=== PATIENT | male | born 1965 | race Caucasian/White ===

== ENCOUNTER 2017-04-05 09:37 | Emergency (ER) | payer OTHER ==
[2017-04-05 09:47] VITALS: BMI 34.7
--- NOTE | 2017-04-05 10:04 | PDOC ---
History of Present Illness - General Chief Complaint: Pain, Acute Stated Complaint: LT SIDE PAIN Time Seen by Provider: 04/05/17 10:04 - History of Present Illness Initial Comments: 50 yo male with PMH of kidney stone (s/p lithotripsy 1 year prior) presenting to ER with sharp left upper quadrant pain radiating to the back. The pain was sudden in onset and started in his back then migrated to the front. He believed that this was a renal calculus pain and only sought relief with ibuprofen 800 BID x 2 weeks. Recently the pain has shifted from a front to back direction. The difference between this pain and previous renal calculus episodes is that this pain radiates to the back whereas as previous pains radiated to the front. Admits to some nausea and urinary frequency (in the setting of high water intake ) but no vomiting, cough, hematuria, hesitancy, dysuria, fevers, chills, diarrhea, constipation, or blood from any orifice. PCP: Mark PCP Urologist: Dr. Siddiqi 04/05/17 10:15 Timing/Duration: unsure Past History - Past Medical History Allergies/Adverse Reactions: Allergies Allergy/AdvReac Type Severity Reaction Status Date / Time No Known Allergies Allergy Verified 04/05/17 09:47 Home Medications: Ambulatory Orders Oxycodone HCl/Acetaminophen [Percocet 5-325 mg Tablet] 1 - 2 tab PO Q6H PRN #5 tab MDD 4 04/05/17 Sulfamethoxazole/Trimethoprim [Bactrim Ds -] 1 tab PO BID #10 tablet 04/05/17 Tamsulosin HCl 0.4 mg PO DAILY #7 cap.er.24h 04/05/17 COPD: No Disorders: Yes (kidney stones) Kidney Stones: Yes - Immunization History Immunization Up to Date: Yes - Suicide/Smoking/Psychosocial Hx Smoking Status: Yes Smoking History: Never smoked Have you smoked in the past 12 months: No Number of Cigarettes Smoked Daily: 0 Hx Alcohol Use: No Drug/Substance Use Hx: No Substance Use Type: None Review of Systems - Review of Systems Constitutional: No: Chills, Diaphoresis HEENTM: No: Blurred Vision Respiratory: No: Cough, Shortness of Breath, Stridor, Wheezing Cardiac (ROS): No: Chest Pain, Irregular Heart Rate, Syncope, Chest Tightness ABD/GI: Yes: Nausea. No: Constipated, Diarrhea, Vomiting : Yes: Frequency. No: Burning, Dysuria, Discharge Integumentary: No: Bruising, Change in Color, Lesions, Pruritus, Rash Neurological: No: Headache *Physical Exam - Vital Signs Last Vital Signs Temp Pulse Resp BP Pulse Ox 98.5 F 71 18 146/95 99 04/05/17 09:45 04/05/17 09:45 04/05/17 09:45 04/05/17 09:45 04/05/17 09:45 - Physical Exam General Appearance: Yes: Nourished, Appropriately Dressed. No: Apparent Distress HEENT: positive: EOMI, SHASHANK, Normal ENT Inspection. negative: Normal Voice ( Sounds slightly congested) Neck: positive: Trachea midline, Normal Thyroid, Supple. negative: Tender, Rigid Respiratory/Chest: positive: Lungs Clear, Normal Breath Sounds. negative: Chest Tender, Respiratory Distress Cardiovascular: positive: Regular Rhythm, Regular Rate Gastrointestinal/Abdominal: positive: Normal Bowel Sounds, Flat, Soft. negative : Tender Musculoskeletal: positive: Normal Inspection. negative: CVA Tenderness Extremity: positive: Normal Inspection, Normal Range of Motion. negative: Tender Integumentary: positive: Normal Color, Dry, Warm Neurologic: positive: Fully Oriented, Alert, Normal Mood/Affect, Normal Response , Motor Strength 5/5 ED Treatment Course - LABORATORY CBC & Chemistry Diagram: 04/05/17 10:13 04/05/17 10:13 Medical Decision Making - Medical Decision Making 51 year old with history of kidney stones and recent 2 week course of high dose NSAID use presenting with LUQ pain radiating to the back. The original onset of pain back pain migrating to the front is suspicious for a renal calculus but the two week timeline along with switch of directionality to front to back is concerning for a large stone/ impacted stone and/or peptic ulcer disease/ erosive gastritis in the setting of high dose prolonged NSAID usage. Will use Tylenol 1 G for pain, Maalox, 04/05/17 10:48 UA returned positive for 1 + blood. CT demonstrating 12 mm right uretral stone ( with significant hydroureter) with two 7mm and 6 mm stones in the left renal pelvis. Paged Dr. Siddiqi for management. 04/05/17 12:[address] [place] and he will see the patient tomorrow in his office. The patient's pain was reasonably controlled after tylenol and oxycodone. Sent home with prescription for Bactrim, tamsulosin, and 5 percocets. 04/05/17 12:52 *DC/Admit/Observation/Transfer Diagnosis at time of Disposition: Renal calculus or stone - Discharge Dispostion Disposition: HOME Condition at time of disposition: Improved Admit: No - Prescriptions Prescriptions: Oxycodone HCl/Acetaminophen [Percocet 5-325 mg Tablet] 1 - 2 tab PO Q6H PRN #5 tab MDD 4 PRN Reason: pain Sulfamethoxazole/Trimethoprim [Bactrim Ds -] 1 tab PO BID #10 tablet Tamsulosin HCl 0.4 mg PO DAILY #7 cap.er.24h - Referrals Referrals: Lux Colorado MD [Staff Physician] - - Patient Instructions Printed Discharge Instructions: DI for Kidney Stones Additional Instructions: You have a few kidney stones including one very large one in your left ureter ( the tube running down from your kidney). Please take the antibiotics and Tamsulosin as directed. Please use the percocet for pain as needed every 6 hours. Please return to the ED if the percocet does not help your pain. You must followup with Dr. Colorado tomorrow for treatment of your stones. - Post Discharge Activity
[2017-04-05] MEDS ORDERED: MAG HYDROX/AL HYDROX/SIMETH 30 ML UNIT-DOSE CUP PO ONE (10:25)
[2017-04-05] MEDS ORDERED: MAG HYDROX/AL HYDROX/SIMETH 30 ML UNIT-DOSE CUP ONE (10:44)
--- NOTE | 2017-04-05 10:48 | PDOC ---
Attending Attestation - Resident Resident Name: Humberto Hull - ED Attending Attestation I have performed the following: I have examined & evaluated the patient, The case was reviewed & discussed with the resident, I agree w/resident's findings & plan, Exceptions are as noted - HPI HPI: 04/05/17 10:46 51 M with h/o kidney stones s/p lithotripsy, presenting to ER with L flank pain x 2 weeks. Pt states that he feels a constant pressure in his side, radiating from the back to his epigastrum. Pt endorses nausea without vomiting. Denies F/ C. Denies diarrhea/constipation. Denies dysuria. Pt states that the pain feels similar to his previous stones. He has been taking motrin 800mg BID with some relief of his pain. - Physicial Exam PE: 04/05/17 10:47 "GENERAL: Awake, alert, and fully oriented, in no acute distress HEAD: No signs of trauma EYES: PERRLA, EOMI, sclera anicteric, conjunctiva clear ENT: Auricles normal inspection, hearing grossly normal, nares patent, oropharynx clear without exudates. Moist mucosa NECK: Nontender, no stepoffs, Normal ROM, supple, no lymphadenopathy, JVD, or masses LUNGS: Breath sounds equal, clear to auscultation bilaterally. No wheezes, and no crackles HEART: Regular rate and rhythm, normal S1 and S2, no murmurs, rubs or gallops ABDOMEN: + LUQ TTP, and + L CVAT EXTREMITIES: Normal range of motion, no edema. No clubbing or cyanosis. No cords, erythema, or tenderness NEUROLOGICAL: Cranial nerves II through XII intact. 5/5 strength and sensation in all extremities, Normal speech, normal gait SKIN: Warm, Dry, normal turgor, no rashes or lesions noted. " - Medical Decision Making 04/05/17 10:47 51 M with LUQ pain radiating to L flank x 2 weeks. Possible obstructing stone. Also consider gastritis vs PUD as pt has been on motrin 800mg BID. - Labs, UA - CTAP - Pain control 04/05/17 12:40 CT shows large obstructing L sided kidney stone with hydroureter. Dr. [place] made aware, states that if pt can tolerate PO and pain is controlled, he will see him in clinic tomorrow. Pt reassessed - he states the pain is tolerable. Pt is well appearing, vitals normal, tolerating PO. Clinically stable for DC. I discussed the physical exam findings, ancillary test results and final diagnoses with the patient. I answered all of the patient's questions. The patient was satisfied with the care received and felt comfortable with the discharge plan and treatment plan. The patient agrees to follow up with the primary care physician within 24-72 hours.
[2017-04-05 10:51] LABS: BASO % 1.4 % (0-2.0); EOS % 5.3 % (0-4.5); HEMATOCRIT 43.5 % (35.4-49); HEMOGLOBIN 14.1 GM/dL (11.7-16.9); LYMPH % 19.7 % (8-40); MCH 29.2 pg (25.7-33.7); MCHC 32.4 g/dl (32.0-35.9); MEAN CELL VOLUME 90.1 fl (80-96); MEAN PLT VOLUME 9.5 fl (7.5-11.1); MONO % 6.8 % (3.8-10.2); NEUT % 66.8 % (42.8-82.8); PLATELET COUNT 202 K/MM3 (134-434); RBC 4.82 M/mm3 (4.00-5.60); RDW 13.6 % (11.9-15.9); URINE APPEARANCE CLEAR; URINE BILIRUBIN NEGATIVE (NEGATIVE); URINE BLOOD 1+ (NEGATIVE); URINE COLOR STRAW; URINE GLUCOSE (UA) NEGATIVE (NEGATIVE); URINE KETONE NEGATIVE (NEGATIVE); URINE LEUK ESTERASE TRACE (NEGATIVE); URINE NITRITE NEGATIVE (NEGATIVE); URINE PROTEIN NEGATIVE (NEGATIVE); URINE UROBILINOGEN NEGATIVE mg/dL (0.2-1.0); WHITE BLOOD COUNT 11.1 K/mm3 (4.0-10.0)
[2017-04-05] MEDS ORDERED: RANITIDINE HCL 150 MG/10 ML UNIT-DOSE PO ONE (11:02)
[2017-04-05] MEDS ORDERED: ACETAMINOPHEN 1000 MG/100 ML VIAL (NON FORMULARY) IVPB ONE (11:02)
[2017-04-05 11:03] LABS: INR 0.98 (0.82-1.09); PROTHROMBIN TIME (PATIENT) 11.1 SEC (9.98-11.88)
[2017-04-05] MEDS ORDERED: ACETAMINOPHEN INJECTION 100 ML IVPB ONE (11:03)
[2017-04-05] MEDS ORDERED: RANITIDINE HCL 150 MG TABLET (FP) PO ONE (11:06)
[2017-04-05] MEDS ORDERED: RANITIDINE HCL 150 MG TABLET (FP) ONE (11:06)
[2017-04-05 11:11] LABS: ALBUMIN 3.7 g/dl (3.4-5.0); ALK PHOS 83 U/L (45-117); ANION GAP 6 (8-16); BILIRUBIN,TOTAL 0.3 mg/dL (0.2-1.0); BLOOD UREA NITROGEN 17 mg/dL (7-18); CALCIUM 8.4 mg/dL (8.5-10.1); CHLORIDE 105 mmol/L (98-107); CO2 29 mmol/L (21-32); CREATININE 1.3 mg/dL (0.7-1.3); GLUCOSE,RANDOM 95 mg/dL (74-106); LIPASE 73 U/L (73-393); POTASSIUM 4.9 mmol/L (3.5-5.1); SGOT/AST 19 U/L (15-37); SGPT/ALT 27 U/L (12-78); SODIUM 140 mmol/L (136-145); TOT PROT 7.8 g/dl (6.4-8.2)
[2017-04-05 11:29] LABS: EPI CELLS RARE /HPF (FEW)
[2017-04-05] MEDS ORDERED: oxyCODONE HCL 5 MG TABLET PO ONE (12:31)
[2017-04-05] MEDS ORDERED: oxyCODONE HCL 5 MG TABLET ONE (12:40)
[2017-04-05 13:54] VITALS: BP 147/89; PULSE 78; TEMP 98.2
== END 2017-04-05 14:06 | disposition home or self-care (01) ==
LOC: JER 09:37
PROC: 3E033NZ Introduction of Analgesics, Hypnotics, Sedatives into Peripheral Vein, Percutaneous Approach (ICD-10-PCS; principal; 2017-04-05)
DX: N13.2 Hydronephrosis with renal and ureteral calculous obstruction (principal); Z87.442 Personal history of urinary calculi
CPT/HCPCS: 36415; 74176-TC; 80053; 81003; 81015; 83690; 85025; 85610; 87086; 99284-25

== ENCOUNTER 2017-06-21 01:03 | Observation (INO) | payer OTHER ==
[2017-06-21] MEDS ORDERED: SODIUM CHLORIDE 0.9% 1000 ML INFUS.BAG IV ONE (01:36)
[2017-06-21] MEDS ORDERED: KETOROLAC TROMETHAMINE 30 MG/1 ML VIAL IVPUSH ONE ×2 (01:36→02:22)
[2017-06-21] MEDS ORDERED: KETOROLAC TROMETHAMINE 60 MG/2 ML VIAL IM ONE (01:53)
[2017-06-21 01:56] LABS: BASO % 0.8 % (0-2.0); EOS % 3.1 % (0-4.5); HEMATOCRIT 41.2 % (35.4-49); LYMPH % 17.9 % (8-40); MCH 30.7 pg (25.7-33.7); MCHC 34.1 g/dl (32.0-35.9); NEUT % 72.2 % (42.8-82.8); PLATELET COUNT 226 K/MM3 (134-434); RBC 4.57 M/mm3 (4.00-5.60); RDW 13.9 % (11.9-15.9); WHITE BLOOD COUNT 12.6 K/mm3 (4.0-10.0)
[2017-06-21 01:57] LABS: URINE APPEARANCE CLEAR; URINE BILIRUBIN NEGATIVE (<2.0 mg/dL); URINE COLOR LTYELLOW; URINE GLUCOSE (UA) NEGATIVE (NEGATIVE); URINE KETONE NEGATIVE (NEGATIVE); URINE LEUK ESTERASE TRACE (NEGATIVE); URINE NITRITE NEGATIVE (NEGATIVE); URINE PROTEIN NEGATIVE (NEGATIVE); URINE UROBILINOGEN NEGATIVE mg/dL (0.2-1.0)
[2017-06-21] MEDS ORDERED: KETOROLAC TROMETHAMINE 30 MG/1 ML VIAL ONE (02:02)
[2017-06-21 02:12] LABS: EPI CELLS RARE /HPF (FEW); URINE MUCUS RARE
--- NOTE | 2017-06-21 02:21 | PDOC ---
Attending Attestation - Resident Resident Name: Dax Aponte - ED Attending Attestation I have performed the following: I have examined & evaluated the patient, The case was reviewed & discussed with the resident, I agree w/resident's findings & plan - HPI HPI: 06/21/17 06:22 Pt comes with right flank and abd pain. He has had this in the past; however he states that there is something different about the pain. Pain woke him from sleep tonight, and he lives two blocks away so he came in. Labs show blood in the urine and slight elevation of WMC count. Spiral CT scan pending. - Physicial Exam PE: 06/21/17 06:24 Agree with resident exam. Pt is afebrile. He feels better with treatment in the ER. He is not writhing in pain at this time. - Medical Decision Making 06/21/17 06:25 CT scan pending. Pt will go home with flomax and urology follow up if CT shows no obstructing kidney stone.. 06/21/17 06:[address] scan ourselves. Pt has a 6.8mm kidney stone in the distal right ureter with hydroureteronephrosis and stranding around the right kidney 06/21/17 06:37 Referring Physician: DAVID SHIELDS Patient Name: COURT BECERRIL THIS IS A PRELIMINARY REPORT FROM IMAGING RN BURN DATE OF SERVICE: 2017-06-21 06:10:49 IMAGES: [id number] EXAM: CT abdomen and pelvis without contrast HISTORY: Concern for stone COMPARISON: None. FINDINGS: Abdomen Liver: Normal Spleen: Normal Pancreas: Normal Gallbladder: Normal Stomach: Normal Small bowel: Normal Large bowel: Normal Appendix: Normal Adrenals:Normal Kidneys: There is a 4 mm stone in the distal right ureter with moderate hydronephrosis and ureteral distention. There are 2 stones in the distal left ureter the largest measuring 1.2 x 1.0 cm. However, there is no left-sided hydronephrosis or ureteral distention Vascular: Normal Lymphatic: Normal Peritoneal: No free peritoneal air or fluid Pelvis: Prostate: normal Rectum: Normal Bladder: Normal The inferior thorax: Normal General: Skeletal: Normal Abdominal wall: Normal IMPRESSION: Right sided obstructive uropathy. Distal left ureteral stone without evidence of obstruction THIS DOCUMENT HAS BEEN ELECTRONICALLY SIGNED Pt will be admitted to the Med surg service
[2017-06-21] MEDS ORDERED: TAMSULOSIN HCL 0.4 MG CAP.ER.24H (FP) PO ONE (02:23)
--- NOTE | 2017-06-21 02:28 | PDOC ---
History of Present Illness - General Chief Complaint: Pain Stated Complaint: R/O KIDNEY STONES Time Seen by Provider: 06/21/17 01:22 History Source: Patient Exam Limitations: No Limitations - History of Present Illness Initial Comments: 06/21/17 02:27 The patient is a 51M with a PMH of nephrolithiasis who presents to the ER with complaints of R back pain. The patient states that overnight tonight, he felt a sudden onset R flank pain which radiates to his anterior RLQ and down to his groin. He says it feels slightly like his previous renal stones. He states that he had a lithotripsy procedure on the L and passed what he thinks was a clot 2 days ago as he was urinating. He states that he has chills but denies any fevers , CP, SOB, nausea, but states he vomited twice. He was at his friends house having a few beers tonight then states he felt the pain and went home and vomited. Past History - Past Medical History Allergies/Adverse Reactions: Allergies Allergy/AdvReac Type Severity Reaction Status Date / Time No Known Allergies Allergy Verified 06/21/17 02:10 Home Medications: Ambulatory Orders Ibuprofen/Famotidine [Duexis 800-26.6 mg Tablet] 1 each PO DAILY 06/21/17 COPD: No Disorders: Yes (kidney stones) Kidney Stones: Yes - Immunization History Immunization Up to Date: Yes - Suicide/Smoking/Psychosocial Hx Smoking Status: Yes Smoking History: Never smoked Have you smoked in the past 12 months: No Number of Cigarettes Smoked Daily: 0 Information on smoking cessation initiated: No Hx Alcohol Use: No Drug/Substance Use Hx: No Substance Use Type: None Review of Systems - Review of Systems Able to Perform ROS?: Yes Comments:: 06/21/17 03:33 GENERAL/CONSTITUTIONAL: Positive for fever. No chills. No weakness. HEAD, EYES, EARS, NOSE AND THROAT: No change in vision. No ear pain or discharge. No sore throat. CARDIOVASCULAR: No chest pain, palpitations, or lightheadedness. RESPIRATORY: No cough, wheezing, shortness of breath, or hemoptysis. GASTROINTESTINAL: Positive for vomiting and abdominal pain. No nausea, diarrhea , or constipation. GENITOURINARY: Positive for R flank pain. No dysuria, frequency, hematuria, or change in urination. MUSCULOSKELETAL: No joint or muscle swelling or pain. No neck or back pain. SKIN: No rash or lesions. NEUROLOGIC: No headache, numbness, tingling, weakness, loss of consciousness, or change in strength/sensation. ENDOCRINE: No increased thirst. No abnormal weight change. HEMATOLOGIC/LYMPHATIC: No anemia, easy bleeding, or history of blood clots. ALLERGIC/IMMUNOLOGIC: No hives or skin allergy. Is the patient limited [place] proficient: No *Physical Exam - Vital Signs Last Vital Signs Temp Pulse Resp BP Pulse Ox 98.0 F 62 18 172/93 10 L 06/21/17 01:13 06/21/17 01:13 06/21/17 01:13 06/21/17 01:13 06/21/17 01:13 - Physical Exam Comments: 06/21/17 03:34 GENERAL: Well developed, well nourished. Awake and alert. No acute distress. HEENT: Normocephalic, atraumatic. Hearing grossly normal. Moist mucous membranes. PERRLA, EOMI. No conjunctival pallor. Sclera are non-icteric. NECK: Supple. Full ROM. No JVD. CARDIOVASCULAR: Regular rate and rhythm. No murmurs, rubs, or gallops. PULMONARY: No evidence of respiratory distress. Lungs clear to auscultation bilaterally. No wheezing, rales or rhonchi. ABDOMINAL: Soft. Tender to deep palpation in RLQ. Non-distended. No rebound or guarding. GENITOURINARY: R CVA tenderness. MUSCULOSKELETAL: Normal range of motion at all joints. No bony deformities or tenderness. EXTREMITIES: No cyanosis. No clubbing. No edema. No calf tenderness. SKIN: Warm and dry. Normal capillary refill. No rashes. No jaundice. NEUROLOGICAL: Alert, awake, appropriate. Cranial nerves 2-12 intact. Normal speech. Gait is normal without ataxia. PSYCHIATRIC: Cooperative. Good eye contact. Appropriate mood and affect. ED Treatment Course - LABORATORY CBC & Chemistry Diagram: 06/21/17 01:49 06/21/17 04:55 - ADDITIONAL ORDERS Additional order review: Laboratory Results 06/21/17 01:49 Urine Color Ltyellow Urine Appearance Clear Urine pH 5.0 Ur Specific Brady 1.023 Urine Protein Negative Urine Glucose (UA) Negative Urine Ketones Negative Urine Blood 2+ H Urine Nitrite Negative Urine Bilirubin Negative Urine Urobilinogen Negative Ur Leukocyte Esterase Trace Urine WBC (Auto) 3 Urine RBC (Auto) 42 Ur Epithelial Cells Rare Urine Mucus Rare 06/21/17 01:49 RBC 4.57 MCV 90.0 MCHC 34.1 RDW 13.9 MPV 10.0 Neutrophils % 72.2 Lymphocytes % 17.9 Monocytes % 6.0 Eosinophils % 3.1 Basophils % 0.8 - Medications Given in the ED: ED Medications Discontinued Medications Generic Name Dose Route Start Last Admin Trade Name Shashi PRN Reason Stop Dose Admin Ketorolac Tromethamine 30 mg 06/21/17 01:36 06/21/17 02:13 Toradol Injection - IVPUSH 06/21/17 01:37 30 mg ONCE ONE Administration Ketorolac Tromethamine 60 mg 06/21/17 01:53 06/21/17 02:12 Toradol Injection - IM 06/21/17 01:54 Not Given ONCE ONE Ketorolac Tromethamine 30 mg 06/21/17 02:22 06/21/17 02:26 Toradol Injection - IVPUSH 06/21/17 02:23 30 mg ONCE ONE Administration Sodium Chloride 1,000 ml 06/21/17 01:36 06/21/17 02:12 Normal Saline - IV 06/21/17 01:37 1,000 ml ONCE ONE Administration Tamsulosin HCl 0.4 mg 06/21/17 02:23 06/21/17 02:27 Flomax - PO 06/21/17 02:24 0.4 mg ONCE ONE Administration Medical Decision Making - Medical Decision Making 06/21/17 03:35 The patient is a 51M with a PMH of nephrolithiasis who presents to the ER with complaints of R flank and RLQ pain. High on my differential is repeat nephrolithiasis vs appendicitis. Will order CBC, CMP to monitor for infection and renal function and UA. Pending labs. 06/21/17 06:30 Labs WNL. Preliminary read of CT indicates R hydronephrosis with 1 renal pelvis stone > 5.5 mm and another L UVJ stone. Will page hospitalist for admission. 06/21/17 06:55 Pt signed out to Dr. Wiggins for admission. *DC/Admit/Observation/Transfer Diagnosis at time of Disposition: Nephrolithiasis - Referrals - Patient Instructions - Post Discharge Activity
[2017-06-21] MEDS ORDERED: morphine CARPU-JECT 4 MG/1 ML DISP.SYRIN IVPUSH ONE (04:53)
[2017-06-21] MEDS ORDERED: morphine SULFATE 4 MG/ML VIAL ONE ×2 (05:22→12:04)
[2017-06-21 05:29] LABS: ALBUMIN 3.6 g/dl (3.4-5.0); ANION GAP 3 (8-16); BILIRUBIN,TOTAL 0.2 mg/dL (0.2-1.0); BLOOD UREA NITROGEN 21 mg/dL (7-18); CALCIUM 8.3 mg/dL (8.5-10.1); CHLORIDE 106 mmol/L (98-107); CO2 29 mmol/L (21-32); CREATININE 1.3 mg/dL (0.7-1.3); GLUCOSE,RANDOM 132 mg/dL (74-106); POTASSIUM 5.1 mmol/L (3.5-5.1); SGOT/AST 18 U/L (15-37); SGPT/ALT 22 U/L (12-78); SODIUM 138 mmol/L (136-145); TOT PROT 7.5 g/dl (6.4-8.2)
[2017-06-21 05:30] LABS: ALK PHOS 83 U/L (45-117)
[2017-06-21] MEDS ORDERED: TAMSULOSIN HCL 0.4 MG CAP.ER.24H (FP) ONE (06:30)
--- NOTE | 2017-06-21 06:46 | PDOC ---
Attending Attestation - ED Attending Attestation I have performed the following: I have examined & evaluated the patient, The case was reviewed & discussed with the resident, I agree w/resident's findings & plan
[2017-06-21] MEDS ORDERED: HYDROmorphone HCL CARPU-JECT 1 MG/1 ML DISP.SYRIN IVPUSH PRN (10:52)
[2017-06-21] MEDS ORDERED: D5-1/2NS+20 MEQ KCL - 20 MEQ/1,000 ML INFUS.BAG IV SCH (11:00)
[2017-06-21] MEDS ORDERED: morphine SULFATE 4 MG/ML VIAL IVPUSH PRN (11:45)
--- NOTE | 2017-06-21 11:46 | HP ---
Admitting History and Physical - Admission History of Present Illness: 51M with a PMH of nephrolithiasis who presents to the ER with complaints of R back pain. The patient states that overnight tonight, he felt a sudden onset R flank pain which radiates to his anterior RLQ and down to his groin. He says it feels slightly like his previous renal stones. He states that he had a lithotripsy procedure on the L and passed what he thinks was a clot 2 days ago as he was urinating. He states that he has chills but denies any fevers, CP, SOB , nausea, but states he vomited twice. He was at his friends house having a few beers tonight then states he felt the pain and went home and vomited. - Past Medical History Cardiovascular: Yes: Hyperlipdemia (diet controlled). No: AFIB, CAD, CHF, HTN Renal/: Yes: Renal Calculi (8 years ago) - Past Surgical History Past Surgical History: Yes: None - Smoking History Smoking history: Never smoked Have you smoked in the past 12 months: No Aproximately how many cigarettes per day: 0 - Alcohol/Substance Use Hx Alcohol Use: No - Social History History of Recent Travel: No Home Medications - Allergies Allergies/Adverse Reactions: Allergies Allergy/AdvReac Type Severity Reaction Status Date / Time No Known Allergies Allergy Verified 06/21/17 02:10 - Home Medications Home Medications: Ambulatory Orders Ibuprofen/Famotidine [Duexis 800-26.6 mg Tablet] 1 each PO DAILY 06/21/17 Family Disease History - Family Disease History Family Disease History: Diabetes: Mother, Other: Father (HTN) Physical Examination Vital Signs: Vital Signs Temperature 98.0 F 06/21/17 01:13 Pulse Rate 89 06/21/17 07:49 Respiratory Rate 18 06/21/17 07:49 Blood Pressure 126/73 06/21/17 07:49 O2 Sat by Pulse Oximetry (%) 98 06/21/17 07:49 Cardiovascular: Yes: Regular Rate and Rhythm Respiratory: Yes: Regular, CTA Bilaterally Gastrointestinal: Yes: Normal Bowel Sounds, Soft. No: Tenderness Edema: No Labs: CBC, BMP 06/21/17 01:49 06/21/17 04:55 Problem List - Problems (1) Calculi, ureter Assessment/Plan: -NPO -IVF -PAIN CONTROL -UROLOGY Code(s): N20.1 - CALCULUS OF URETER (2) Hydronephrosis with urinary obstruction due to renal calculus Assessment/Plan: - ABOVE Code(s): N13.2 - HYDRONEPHROSIS WITH RENAL AND URETERAL CALCULOUS OBSTRUCTION
[2017-06-21 11:50] VITALS: BMI 35.3
[2017-06-21] MEDS ORDERED: CEFTRIAXONE 1 GM in DEXTROSE 5%-WATER - 50 ML IVPB ONE (15:05)
[2017-06-21] MEDS ORDERED: CEFTRIAXONE 1 GM/50 ML BAG ONE (15:16)
--- NOTE | 2017-06-21 15:47 | CON.GU ---
Consult - History of Present Illness History of Present Illness: 51 yo male with h/o recurrent nephrolithiaisis s/p ESWL of large left ureteral stone 2 mos ago, now admitted with rt flank pain, N/V. CT shows obstructing 8mm RDU stone, aslo of note is a 9mm RK stone and nonobstructing 11mm and 5mm LDU stones - History Source History Provided By: Patient Limitations to Obtaining History: No Limitations - Past Medical History Cardio/Vascular: Yes: Hyperlipdemia (diet controlled). No: AFIB, CAD, CHF, HTN Renal/: Yes: Renal Calculi (8 years ago) - Past Surgical History Past Surgical History: Yes: None - Alcohol/Substance Use Hx Alcohol Use: No - Smoking History Smoking history: Never smoked Have you smoked in the past 12 months: No Aproximately how many cigarettes per day: 0 - Social History History of Recent Travel: No Home Medications - Allergies Allergies/Adverse Reactions: Allergies Allergy/AdvReac Type Severity Reaction Status Date / Time No Known Allergies Allergy Verified 06/21/17 02:10 - Home Medications Home Medications: Ambulatory Orders Ibuprofen/Famotidine [Duexis 800-26.6 mg Tablet] 1 each PO DAILY 06/21/17 Family Disease History - Family Disease History Family Disease History: Diabetes: Mother, Other: Father (HTN) Review of Systems - Review of Systems Genitourinary: reports: Flank Pain Physical Exam- Vital Signs: Vital Signs Temperature 97.7 F 06/21/17 15:42 Pulse Rate 74 06/21/17 15:42 Respiratory Rate 20 06/21/17 15:42 Blood Pressure 147/89 06/21/17 15:42 O2 Sat by Pulse Oximetry (%) 98 06/21/17 14:47 Constitutional: Yes: Well Nourished Eyes: Yes: WNL HENT: Yes: WNL Neck: Yes: WNL Cardiovascular: Yes: WNL Respiratory: Yes: WNL Gastrointestinal: Yes: WNL Renal/: Yes: CVA Tenderness - Right Kidneys: Yes: FLank Pain Right Pelvis: Yes: Bladder Non Palpable Testicles: Yes: Descended Scrotum: Yes: WNL Penis: Yes: WNL Prostate Exam: Yes: WNL Musculoskeletal: Yes: WNL Psychiatric: Yes: Alert, Oriented Labs: CBC, BMP 06/21/17 01:49 06/21/17 04:55 Imaging - Results Cat Scan: Image Reviewed Problem List - Problems (1) Calculi, ureter Assessment/Plan: in light of persistant pain, elevated WBC and size of stone, will plan for rt ureteroscopy/laser litho stent placement and also stent placement on left Code(s): N20.1 - CALCULUS OF URETER
[2017-06-21] MEDS ORDERED: MIDAZOLAM HCL 2 MG/2 ML SINGLE DOSE VIAL ONE ×2 (17:09→17:23)
--- NOTE | 2017-06-21 18:13 | OP ---
Operative Note - Note: Operative Date: 06/21/17 Pre-Operative Diagnosis: obstructing RDU stone, left DU stones Operation: cysto/bilateral retrograde/right ureteroscopy/laser litho/stent placement/left ureteral stent placement Findings: as above Post-Operative Diagnosis: Same as Pre-op Surgeon: Lux Colorado Anesthesiologist/ISSUER: Zach Tong Anesthesia: General Specimens Removed: stone frags Estimated Blood Loss (mls): 1 Drains & Tubes with Location: 7fr 28cm stent x 2 Operative Report Dictated: Yes
[2017-06-21] MEDS ORDERED: DEXTROSE 5%-0.45% SALINE 1,000 ML IV SCH (18:15)
[2017-06-21] MEDS ORDERED: ONDANSETRON 4 MG/2 ML VIAL IVPUSH PRN (18:22)
[2017-06-21] MEDS ORDERED: LACTATED RINGERS SOLUTION 1,000 ML IV SCH (18:30)
--- NOTE | 2017-06-21 20:08 | OP ---
DATE OF OPERATION: 06/21/2017 PREOPERATIVE DIAGNOSIS: Obstructing right distal ureteral stone and nonobstructing left distal ureteral stone. POSTOPERATIVE DIAGNOSIS: Obstructing right distal ureteral stone and nonobstructing left distal ureteral stone. PROCEDURE: Cystoscopy, bilateral retrograde pyelogram, right ureteroscopy, laser lithotripsy, stent placement and left ureteral stent placement. SURGEON: Pamela Andrade MD ANESTHETIC: Spinal. INDICATION: The patient is a 51-year-old male with a history of recurrent nephrolithiasis status post ESWL of large left ureteral stone approximately 2 months ago who now presents with acute onset of right flank pain and noted to have an obstructing 8-mm stone in the right distal ureter with elevated white count. He was taken to the OR immediately for cystoscopy, ureteroscopy and laser lithotripsy of the ureteral stones and stent placement of left ureteral stone, because he also had a large nonobstructing stone in the left distal ureter, and the stone will need to be treated at another time. DESCRIPTION OF PROCEDURE: After informed consent was obtained the patient was taken to the OR, placed supine on the table. Cardiac monitoring administered. Spinal anesthesia established. He was prepped and draped in dorsal lithotomy position. He had been given 1 g of ceftriaxone. At this point the rigid cystocope was introduced into the urethra without difficulty. Anterior urethra was normal. Prostatic urethra was 3 cm and occlusive. The bladder was visualized. No tumors or stones noted in the bladder. Attention was turned to the right ureteral orifice. This was intubated with the ureteral catheter. There was contrast injected for a retrograde pyelogram. Hydronephrosis down to the distal ureter was noted, where a radiolucent stone was present. A guidewire was advanced beyond the stone and the double lumen 7 degree ureteroscope was entered the distal ureter where the stone was seen. Using 365 micron fiber, the stone was pulverized into fine dust and 1-2 mm fragments and several of these fragments were removed and sent to pathology for analysis. The rigid ureteroscope was removed and the flexible ureteroscope was advanced and the entire area was inspected. No other stones were noted. The ureteroscope was then removed and a 7-Nigerien 28-cm double pigtail stent was then advanced in the monorail fashion over the right ureter, and fluoroscopy confirmed the stent to be in good position. With the right side now completed, attention was turned to the left side. catheter. Contrast was injected for a retrograde pyelogram. There was no hydronephrosis but a filling defect in the distal ureter. The guidewire was advanced and then over the guidewire a 7-Nigerien 28-cm double pigtail stent was then advanced in monorail fashion the guidewire removed. The left ureteral stones will be treated at a later date, since patient had evidence of a white count and did not want to prolong the procedure any more than it needed to be. The cystocope was then removed and fluoroscopy confirmed again the left stent to be in good position as well as right stent. A Green catheter was placed to straight drainage. The patient was awoken from anesthesia and transferred to recovery in stable condition. There were no complications. Estimated blood loss was minimal. PAMELA ANDRADE M.D. [id number]
[2017-06-21] MEDS ORDERED: HEPARIN NA (PORCINE) 5,000 UNITS/ML 1ML VIAL SQ SCH (22:00)
[2017-06-22] MEDS: oxyCODONE HCL 5 MG TABLET PO PRN ×3 (01:34→13:44)
[2017-06-22 07:52] LABS: BASO % 0.3 % (0-2.0); EOS % 5.3 % (0-4.5); HEMATOCRIT 38.1 % (35.4-49); LYMPH % 24.1 % (8-40); MCH 30.8 pg (25.7-33.7); MEAN CELL VOLUME 90.4 fl (80-96); MEAN PLT VOLUME 9.4 fl (7.5-11.1); MONO % 7.7 % (3.8-10.2); NEUT % 62.6 % (42.8-82.8); PLATELET COUNT 194 K/MM3 (134-434); RBC 4.21 M/mm3 (4.00-5.60); RDW 14.1 % (11.9-15.9); WHITE BLOOD COUNT 8.7 K/mm3 (4.0-10.0)
[2017-06-22 08:14] LABS: ALBUMIN 3.1 g/dl (3.4-5.0); ANION GAP 6 (8-16); BLOOD UREA NITROGEN 17 mg/dL (7-18); CHLORIDE 104 mmol/L (98-107); CO2 30 mmol/L (21-32); CREATININE 1.1 mg/dL (0.7-1.3); GLUCOSE,RANDOM 105 mg/dL (74-106); POTASSIUM 4.4 mmol/L (3.5-5.1); SGOT/AST 17 U/L (15-37); SGPT/ALT 16 U/L (12-78); SODIUM 140 mmol/L (136-145)
[2017-06-22 08:15] LABS: ALK PHOS 78 U/L (45-117); BILIRUBIN,TOTAL 0.2 mg/dL (0.2-1.0); TOT PROT 6.7 g/dl (6.4-8.2)
--- NOTE | 2017-06-22 09:14 | PN ---
Progress Note, Physician Chief Complaint: s/p cystoscopy with stents post op day one History of Present Illness: under spinal anesthesia - Current Medication List Current Medications: Active Medications Dextrose/Sodium Chloride (D5-1/2ns -) 1,000 mls @ 75 mls/hr IV [facility] Last Admin: 06/21/17 19:10 Dose: 0 mls Lactated Ringer's (Lactated Ringers Solution) 1,000 mls @ 75 mls/hr IV [facility] Last Admin: 06/22/17 01:25 Dose: Not Given Ondansetron HCl (Zofran Injection) 4 mg IVPUSH Q6H PRN PRN Reason: NAUSEA AND/OR VOMITING Oxycodone HCl (Roxicodone -) 5 mg PO Q4H PRN PRN Reason: PAIN LEVEL 1-5 Last Admin: 06/22/17 07:37 Dose: 5 mg - Objective Vital Signs: Vital Signs Temperature 98.0 F 06/22/17 05:46 Pulse Rate 71 06/22/17 05:46 Respiratory Rate 20 06/22/17 05:46 Blood Pressure 140/85 06/22/17 05:46 O2 Sat by Pulse Oximetry (%) 100 06/21/17 22:00 Constitutional: Yes: Well Nourished Cardiovascular: Yes: WNL Respiratory: Yes: WNL Gastrointestinal: Yes: WNL Labs: CBC, BMP 06/22/17 06:52 06/22/17 06:52 Assessment/Plan No complaints about anesthetic, no adverse effects, mild flank pain. Dept of anesthesiology will sign off the case at this time
--- NOTE | 2017-06-22 12:16 | EKG ---
Test Reason : Blood Pressure : / mmHG Vent. Rate : 085 BPM Atrial Rate : 085 BPM P-R Int : 162 ms QRS Dur : 106 ms QT Int : 386 ms P-R-T Axes : 028 -28 016 degrees QTc Int : 459 ms NORMAL SINUS RHYTHM VOLTAGE CRITERIA FOR LEFT VENTRICULAR HYPERTROPHY ABNORMAL ECG WHEN COMPARED WITH ECG OF 05-JUN-2015 08:58, NO SIGNIFICANT CHANGE WAS FOUND Confirmed by ALYSON ZEE MD ([id number]) on 06/22/2017 12:15:56 PM Referred By: Confirmed By:ALYSON ZEE MD
--- NOTE | 2017-06-22 12:40 | PN ---
Progress Note, Physician Chief Complaint: Right flank pain Obstruction nephrolithiasis Hydronephrosis History of Present Illness: NAD, in bed, family at bedside complaining of burning during urination and pelvic pressure self ambulatory blood in [id number], is expected post stent placement - Current Medication List Current Medications: Active Medications Dextrose/Sodium Chloride (D5-1/2ns -) 1,000 mls @ 75 mls/hr [facility] Last Admin: 06/21/17 19:10 Dose: 0 mls Lactated Ringer's (Lactated Ringers Solution) 1,000 mls @ 75 mls/hr IV [facility] Last Admin: 06/22/17 01:25 Dose: Not Given Ondansetron HCl (Zofran Injection) 4 mg IVPUSH Q6H PRN PRN Reason: NAUSEA AND/OR VOMITING Oxycodone HCl (Roxicodone -) 5 mg PO Q4H PRN PRN Reason: PAIN LEVEL 1-5 Last Admin: 06/22/17 07:37 Dose: 5 mg - Objective Vital Signs: Vital Signs Temperature 98.3 F 06/22/17 10:00 Pulse Rate 94 H 06/22/17 10:00 Respiratory Rate 16 06/22/17 10:00 Blood Pressure 135/77 06/22/17 10:00 O2 Sat by Pulse Oximetry (%) 98 06/22/17 08:00 Constitutional: Yes: Well Nourished, No Distress, Calm Cardiovascular: Yes: Regular Rate and Rhythm Respiratory: Yes: Regular Gastrointestinal: Yes: Normal Bowel Sounds, Soft, Tenderness (pelvic) Genitourinary: Yes: WNL Musculoskeletal: Yes: WNL Extremities: Yes: WNL Edema: No Peripheral Pulses WNL: Yes Neurological: Yes: Alert, Oriented Psychiatric: Yes: Alert, Oriented Labs: CBC, BMP 06/22/17 06:52 06/22/17 06:52 Problem List - Problems (1) Nephrolithiasis Assessment/Plan: -BL ureter stent placementt POD #1 Code(s): N20.0 - CALCULUS OF KIDNEY (2) Hydronephrosis with urinary obstruction due to renal calculus Code(s): N13.2 - HYDRONEPHROSIS WITH RENAL AND URETERAL CALCULOUS OBSTRUCTION Assessment/Plan see problem list
[2017-06-22 13:25] VITALS: BP 137/80; PULSE 86; TEMP 97.9
[2017-06-22] MEDS ORDERED: PHENAZOPYRIDINE HCL 100 MG TABLET (FP) PO PRN (14:05)
--- NOTE | 2017-06-23 09:47 | PATH ---
Surgical Pathology Report Patient Name: COURT BECERRIL Med. Rec. #: [id number] /Age/Gender: 1965 (Age: 51) / M Account: [id number] Location: [facility] MED/SURG Taken: 06/21/2017 Received: 06/22/2017 Reported: 06/23/2017 Physicians: Lux [place] M.D. Specimen(s) Received RIGHT URETERAL STONES Clinical History Bilateral ureteral stones Final Diagnosis URETERAL STONES, RIGHT, REMOVAL: URETEROLITHIASIS. MACROSCOPIC DIAGNOSIS. Electronically Signed Carmen Morris M.D. Gross Description Received fresh labeled "right ureteral stones," is a 0.5 x 0.3 x 0.2 cm aggregate of bonilla, irregular to fragmented calculi. The specimen is sent for chemical analysis. /06/22/2017 saudi/06/22/2017
[2017-07-02 14:15] LABS: URIC ACID 93 % (.); WEIGHT 11.8 mg (.)
== END 2017-06-22 15:59 | disposition home or self-care (01) ==
LOC: JER 01:03 → JERBED 09:31 → J7W 15:36
PROVIDERS: ADMIT Family Medicine; ATTEND Family Medicine
PROC: 0TF68ZZ Fragmentation in Right Ureter, Via Natural or Artificial Opening Endoscopic (ICD-10-PCS; 2017-06-21)
PROC: 0T788DZ Dilation of Bilateral Ureters with Intraluminal Device, Via Natural or Artificial Opening Endoscopic (ICD-10-PCS; 2017-06-21)
PROC: 0TF78ZZ Fragmentation in Left Ureter, Via Natural or Artificial Opening Endoscopic (ICD-10-PCS; principal; 2017-06-21 16:30)
DX: N20.1 Calculus of ureter (principal); Z87.442 Personal history of urinary calculi
CPT/HCPCS: 36415; 74176; 76000-TC-FY; 80053; 81003; 81015; 82360; 85025; 87086; 88300-TC; 93005; 93010; 94760; 99285-25; G0378; J7030

== ENCOUNTER 2021-07-15 09:16 | Day surgery (SDC) | payer BC ==
[2021-07-12 11:01] VITALS: BMI 38.9
[2021-07-15 10:26] VITALS: TEMP 97.7
[2021-07-15 10:34] VITALS: BP 130/84
[2021-07-15 10:35] VITALS: PULSE 78
== END 2021-07-15 10:50 | disposition home or self-care (01) ==
LOC: FASU-ENDO 09:16
PROVIDERS: ATTEND Internal Medicine Gastroenterology
PROC: 3E0H8KZ Introduction of Other Diagnostic Substance into Lower GI, Via Natural or Artificial Opening Endoscopic (ICD-10-PCS; 2021-07-15)
PROC: 0DBN8ZX Excision of Sigmoid Colon, Via Natural or Artificial Opening Endoscopic, Diagnostic (ICD-10-PCS; principal; 2021-07-15 09:52)
DX: Z12.11 Encounter for screening for malignant neoplasm of colon (principal); K57.30 Diverticulosis of large intestine without perforation or abscess without bleeding; D12.5 Benign neoplasm of sigmoid colon
CPT/HCPCS: 88305-TC